=== PATIENT | male | born 1985 | race Caucasian/White ===

== ENCOUNTER 2017-08-24 09:33 | Emergency (ER) | payer OTHER ==
[~2017-08-24] VITALS: Ht 167.6 cm; Wt 85.7 kg
[~2017-08-24 09:33] MED LIST: KETO10TA2 PO
[2017-08-24] MEDS ORDERED: CYCLOBENZAPRINE10 MG PO (12:20)
[2017-08-24] MEDS ORDERED: KETO10TA2 PO (12:20)
[2017-08-24] MEDS ORDERED: ORPHENADRINE C100 MG PO (12:20)
== END 2017-08-24 14:14 | disposition home or self-care (01) ==
LOC: ER 09:33
DX: M54.5 Low back pain (principal)

== ENCOUNTER 2018-01-04 06:00 | Day surgery (SDC) | payer OTHER ==
[~2018-01-04 06:00] MED LIST changes: +AMOXICILLIN250 MG PO; +CLONAZEPAM0.5 MG PO; +CYCLOBENZAPRINE10 MG PO; +ORPHENADRINE C100 MG PO
== END 2018-01-04 17:30 | disposition home or self-care (01) ==
LOC: CIR.AMB 06:00
DX: H71.01 Cholesteatoma of attic, right ear (principal); H74.11 Adhesive right middle ear disease